=== PATIENT | female | born 1945 | race Hispanic/Latino ===

== ENCOUNTER 2019-05-22 09:11 | Day surgery (SDC) | payer MEDICARE ==
[~2019-05-22 09:11] MED LIST: NACL 0.9% 1000 ML 1,000 ML IV SCH; WATER FOR IRRIG STERILE IR ONE
--- NOTE | 2019-05-22 11:38 | Anesthesia Consultation ---
Anesthesia Consult and Med Hx Date of service: 05/22/19 - Airway Anesthetic Teeth Evaluation: Good ROM Head & Neck: Adequate Mental/Hyoid Distance: Adequate Mallampati Class: Class II Intubation Access Assessment: Good - Pre-Operative Health Status ASA Pre-Surgery Classification: ASA3 Proposed Anesthetic Plan: MAC - Cardiovascular System Hx Hypertension: Yes Hx Coronary Artery Disease: Yes Hx Heart Attack/AMI: Yes (CABG) - Central Nervous System CVA: Yes - Endocrine Hx Renal Disease: Yes Hx Hypothyroidism: Yes - Other Systems Hx Obesity: Yes
--- NOTE | 2019-05-22 11:39 | Anesthesia Day of Surgery ---
Anesthesia Day of Surgery - Day of Surgery Patient Examined: Yes Patient H&P Reviewed: Yes Patient is NPO: Yes Beta Blockers: Yes
[2019-05-22] MEDS ORDERED: VERSED IV NR (12:00)
[2019-05-22] MEDS ORDERED: DIPRIVAN 10 MG/ML IV ONE ×2 (12:53)
--- NOTE | 2019-05-22 13:22 | Short Stay Summary ---
Short Stay Documentation Date of service: 05/22/19 Narrative H&P: the patient presents for surveillance colonoscopy. Hx polyps. Last study 6 years ago - History Past Medical History: CAD, COPD, hypertension, other (ckd, osteoporosis) Past Surgical History: CABG, Other (breast surgery) Social history: no significant social history, lives with family - Allergies and Medications Current Medications: Allergies crab Allergy (Intermediate, Verified 05/19/19 09:47) Unknown mussels Allergy (Intermediate, Verified 05/19/19 09:47) Unknown ibuprofen Allergy (Mild, Verified 05/19/19 09:47) Nausea BACK PAIN trazodone Adverse Reaction (Severe, Verified 05/19/19 09:47) Anaphylaxis Home Medications Medication Instructions Recorded Confirmed Last Taken Type Aspirin BABY CHEW TAB 81 mg PO DAILY 05/19/19 05/22/19 05/13/19 History Atorvastatin 20 mg PO DAILY 05/19/19 05/22/19 05/21/19 History Clopidogrel 75 mg PO DAILY 05/19/19 05/22/19 05/13/19 History Gabapentin 300 mg PO TID 05/19/19 05/22/19 05/21/19 History Levothyroxine 100 mg PO DAILY 05/19/19 05/22/19 05/21/19 History Metoprolol 50 mg PO BID 05/19/19 05/22/19 05/22/19 History Morphine 15 mg PO DAILY 05/19/19 05/22/19 05/21/19 History Zanaflex 4mg CAP 1 tab PO DAILY 05/19/19 05/22/19 05/21/19 History amLODIPine 10 mg PO DAILY 05/19/19 05/22/19 05/21/19 History oxyCODONE /ACETAMINOPHEN 7.5 - 325 mg PO TID 05/19/19 05/22/19 05/21/19 History Active Medications Sodium Chloride (Nacl 0.9% 1000 Ml) 1,000 mls @ 50 mls/hr IV DIRECT ENMA Last Admin: 05/22/19 11:50 Dose: 50 mls/hr Documented by: Midazolam HCl (Versed) 2 mg IV PREOP NR Stop: 05/22/19 23:59 Last Admin: 05/22/19 11:52 Dose: 2 mg Documented by: - Physical exam General appearance: no acute distress, well-nourished, obese Integumentary: no rash, no growths, no abnormal pigmentation HEENT: Atraumatic, PERRLA, EOMI, Mucous membr. moist/pink Lungs: Clear to auscultation, Normal air movement Breasts: deferred Heart: Regular rate, Normal S1, Normal S2, No murmurs Gastrointestinal: normoactive bowel sounds, no tenderness, no distended, no masses, no obese Female Genitourinary: deferred Rectal Exam: normal exam-external/orifice Extremities: no ischemia, pulses intact, pulses symmetrical, No edema, normal temperature, normal color Neurological: Normal gait, Normal speech, Strength at 5/5 X4 ext, Normal tone, Sensation intact, Cranial nerves 3-12 NL - Brief post op/procedure progress note Date of procedure: 05/22/19 Findings: report dictated Estimated blood loss: none Pathology: list (descending colon polyp) Specimen disposition: to lab Condition: stable - Disposition Condition at discharge: Good Disposition: DC-01 TO HOME OR SELFCARE - Discharge Diagnoses (1) History of colon polyps Status: Acute Short Stay Discharge Plan Activity: other (Restart plavix in 5 days. No driving for 24 hours.) Weight Bearing Status: Weight Bear as Tolerated Diet: regular Follow up with: TEA MONROY MD [Primary Care Provider] - 7 Days
--- NOTE | 2019-05-22 13:25 | Operative Report ---
Operative Report Operative Report: Date of procedure: 05/22/2019 Preprocedure diagnosis: Prior history of colon polyps. Last study 6 years ago. Post procedure diagnosis: 1.5 cm descending colon polyp. Procedure: Colonoscopy to the cecum snare cautery polypectomy. Endoscopist: Dr. Villar Anesthesia: Monitored anesthesia care per anesthesia department Estimated blood loss: 0 Medications: Monitored anesthesia care. See separate report by anesthesia for details. After careful discussion of the nature and purpose of the procedure as well as details of the technique risks benefits and alternatives the patient gave consent. Please see recent history and physical from the office. The patient was placed in the left lateral decubitus position and medicated per anesthesia. A rectal exam was performed sphincter tone was normal there were no masses palpable. The [employer]n 570 scope was passed transanally and advanced under continuous direct vision without difficulty to the cecum. The colon was well prepared. The cecum was normal. The ascending colon was normal and on forward and retroflexed views. There was a 1.5 cm pedunculated polyp in the descending colon. The polyp was removed with snare electrocautery and retrieved by suction. The transverse colon and sigmoid colon were normal. The rectum was normal on forward and retroflexed views. The procedure was well-tolerated overall and the patient was observed in recovery. Conclusions: Descending colon polyp, 1.5 cm. Plan: Await pathology. Repeat colonoscopy in [facility]. Signed electronically: Brenden Villar M.D.
[2019-05-22] MEDS ORDERED: SUBLIMAZE ONE (13:49)
[2019-05-22] MEDS ORDERED: XYLOCAINE MPF 2% ONE (14:00)
[2019-05-22] MEDS ORDERED: NORMODYNE IV ONE ×3 (14:49→15:25)
[2019-05-22] MEDS ORDERED: TORADOL IV ONE (15:00)
[2019-05-22] MEDS ORDERED: DILAUDID IV PRN (15:22)
[2019-05-22 16:40] VITALS: BP 171/73
== END 2019-05-22 09:12 | disposition home or self-care (01) ==
LOC: GIO 09:11
PROVIDERS: ATTEND Internal Medicine Gastroenterology
DX: Z12.11 Encounter for screening for malignant neoplasm of colon (principal); D12.4 Benign neoplasm of descending colon; I25.10 Atherosclerotic heart disease of native coronary artery without angina pectoris; I25.2 Old myocardial infarction; E03.9 Hypothyroidism, unspecified; E66.9 Obesity, unspecified; I12.9 Hypertensive chronic kidney disease with stage 1 through stage 4 chronic kidney disease, or unspecified chronic kidney disease; N18.9 Chronic kidney disease, unspecified; E78.00 Pure hypercholesterolemia, unspecified; M19.90 Unspecified osteoarthritis, unspecified site; M81.0 Age-related osteoporosis without current pathological fracture; Z88.8 Allergy status to other drugs, medicaments and biological substances; Z79.82 Long term (current) use of aspirin; Z79.899 Other long term (current) drug therapy; Z87.891 Personal history of nicotine dependence; Z98.890 Other specified postprocedural states; Z68.31 Body mass index [BMI] 31.0-31.9, adult; Z86.010 Personal history of colon polyps
CPT/HCPCS: 45385; 88305; J1170; J1885; J2250; J2704; J3010; J7030; 96375

== ENCOUNTER 2021-12-14 16:45 | Outpatient (CLI) | payer MEDICARE, BC | END 2021-12-14 16:46 | disposition home or self-care (01) | LOC: LAB 16:45 | PROVIDERS: ATTEND Specialist | DX: M50.80 Other cervical disc disorders, unspecified cervical region (principal); G43.711 Chronic migraine without aura, intractable, with status migrainosus; E07.9 Disorder of thyroid, unspecified | CPT/HCPCS: 36415; 82607; 82747; 83921; 84443 ==